=== PATIENT | female | born 1990 | race Hispanic/Latino ===

== ENCOUNTER 2018-05-12 20:50 | Inpatient (IN) | payer MEDICAID ==
[~2018-05-12] VITALS: Ht 154.9 cm; Wt 63.0 kg
[2018-05-12] MEDS ORDERED: LACTATED RINGERS 1000ML 1,000 ML IV PRN (20:59)
[2018-05-12] MEDS ORDERED: PROMETHAZINE HCL 25 MG/ML 1ML AMPULE IM SCH (21:30)
[2018-05-12] MEDS ORDERED: MEPERIDINE-PF 25 MG/ML SYG IVP ONE (21:30)
[2018-05-12] MEDS ORDERED: MEPERIDINE-PF 50 MG/ML SYG IVP ONE (21:30)
[2018-05-12] MEDS ORDERED: AMPICILLIN 2GM+NS 100ML 100 ML IV ONE (21:34)
[2018-05-12] MEDS ORDERED: LACTATED RINGERS 1000ML 1,000 ML IV ONE (21:35)
[2018-05-12] MEDS ORDERED: OXYTOCIN 10 USP UNITS/ML ONE (21:35)
[2018-05-12] MEDS ORDERED: MEPERIDINE-PF 25 MG/ML SYG ONE (21:43)
[2018-05-12] MEDS ORDERED: PROMETHAZINE HCL 25 MG/ML 1ML AMPULE IM ONE (21:43)
[2018-05-12] MEDS ORDERED: AMPICILLIN 1GM+NS 50ML 50 ML IV SCH (21:45)
[2018-05-12] MEDS ORDERED: AMPICILLIN 2GM+NS 100ML 100 ML IV SCH (21:45)
[2018-05-12] MEDS: OXYTOCIN-LR 20 UNITS/1000 ML 1,000 ML IV SCH (22:30)
[2018-05-12] MEDS ORDERED: BENZOCAINE/LANOLIN/ALOE VERA 60 ML AEROSOL TP PRN (23:45)
[2018-05-12] MEDS ORDERED: WITCH HAZEL 1 PAD TP PRN (23:45)
[2018-05-12] MEDS ORDERED: LANOLIN 30GM OINTMENT TP PRN (23:45)
[2018-05-12] MEDS ORDERED: ACETAMINOPHEN-CODEINE 300/30MG TAB PO PRN (23:45)
[2018-05-12] MEDS ORDERED: DIPH,PERTUSS(ACELL),TET VAC/PF 0.5 ML VIAL IM PRN (23:45)
[2018-05-12] MEDS ORDERED: OXYTOCIN-LR 20 UNITS/1000 ML 1,000 ML IV SCH (23:45)
[2018-05-12] MEDS ORDERED: ACETAMINOPHEN 325 MG TAB PO PRN (23:45)
[2018-05-13] VITALS (7 sets, daily range): BP systolic 101–121; BP diastolic 53–74
[2018-05-13] LABS: APPEARANCE,URINE Clear (CLEAR); BILIRUBIN,URINE Negative (NEGATIVE); COLOR,URINE Yellow (YELLOW); GLUCOSE, URINE (UA) Negative (NEGATIVE); KETONES,URINE >=80 mg/dL (NEGATIVE); LEUKOCYTE ESTERASE ,URINE Trace (NEGATIVE); NITRATE,URINE Negative (NEGATIVE); OCCULT BLOOD,URINE Negative (NEGATIVE); PH,URINE 6.5 (5.0-8.0); PROTEIN,URINE Negative (NEGATIVE)
[2018-05-13 00:10] LABS: BACTERIA,URINE Few /HPF (None Seen); MUCUS,URINE Moderate LPF (None Seen); RBC,URINE 0-1 /HPF (0-1); SQUAMOUS EPITHELIAL CELL,UR Moderate /HPF (0-2); YEAST,URINE BUDDING Moderate /HPF (None Seen)
[2018-05-13 00:13] LABS: AMPHET/METH SCREEN,URINE NEGATIVE (NEGATIVE); BARBITURATE SCREEN, URINE NEGATIVE (NEGATIVE); BENZODIAZEPINES SCREEN,URINE NEGATIVE (NEGATIVE); CANNABINOID SCREEN,URINE NEGATIVE (NEGATIVE); COCAINE SCREEN,URINE NEGATIVE (NEGATIVE); OPIATE SCREEN,URINE NEGATIVE (NEGATIVE); PHENCYCLIDINE SCREEN,URINE NEGATIVE (NEGATIVE)
[2018-05-13] MEDS ORDERED: OXYTOCIN 10 USP UNITS/ML ONE (00:44)
[2018-05-13] MEDS ORDERED: LACTATED RINGERS 1000ML 1,000 ML IV ONE (00:44)
[2018-05-13 05:55] LABS: HEMATOCRIT 29.1 % (36-48); MEAN CORPUSCULAR HEMOGLOBIN 25.8 pg (27.0-33.0); MEAN CORPUSCULAR HGB CONC 33.1 g/dL (32.0-36.0); MEAN CORPUSCULAR VOLUME 77.9 fL (79-99); PLATELET COUNT (AUTO) 160 K/uL (130-400); RED BLOOD CELL COUNT(AUTO) 3.73 MIL/uL (4.00-5.50); RED CELL DISTRIBUTION WIDTH 13.8 % (11.0-15.5); WHITE BLOOD COUNT (AUTO) 15.9 K/uL (4.8-10.8)
[2018-05-13 06:25] LABS: BASOPHILS % (AUTO) 0.2 % (0.0-5.0); EOSINOPHILS % (AUTO) 0.5 % (0.0-8.0); HEMATOCRIT 37.5 % (36-48); LYMPHOCYTES % (AUTO) 14.8 % (21.0-51.0); MEAN CORPUSCULAR HEMOGLOBIN 24.7 pg (27.0-33.0); MEAN CORPUSCULAR VOLUME 79.6 fL (79-99); MONOCYTES % (AUTO) 7.1 % (3.0-13.0); NEUTROPHILS % (AUTO) 77.4 % (40.0-77.0); PLATELET COUNT (AUTO) 192 K/uL (130-400); RED BLOOD CELL COUNT(AUTO) 4.71 MIL/uL (4.00-5.50); RED CELL DISTRIBUTION WIDTH 14.7 % (11.0-15.5); WHITE BLOOD COUNT (AUTO) 11.8 K/uL (4.8-10.8)
[2018-05-13 07:17] LABS: RAPID PLASMA REAGIN NONREACTIVE (NONREACTIVE)
[2018-05-13] MEDS: IBUPROFEN 600 MG TABLET PO PRN ×2 (10:36→20:23)
[2018-05-13] MEDS: DOCUSATE SODIUM 100 MG CAP PO SCH ×2 (10:36→20:22)
[2018-05-13] MEDS: OXYTOCIN-LR 20 UNITS/1000 ML 1,000 ML IV SCH (21:30)
[2018-05-14 03:39] VITALS: BP 105/60
[2018-05-14] MEDS: IBUPROFEN 600 MG TABLET PO PRN (05:47)
[2018-05-14 07:32] VITALS: BP 111/73
[2018-05-14 08:22] LABS: HEPATITIS Bs ANTIGEN SCREEN P Negative (Negative)
[2018-05-14] MEDS: DOCUSATE SODIUM 100 MG CAP PO SCH (08:23)
[2018-05-14 11:27] VITALS: BP 123/74
== END 2018-05-14 11:30 | disposition home or self-care (01) | DRG 560 ==
LOC: EDH 20:50 → OBSVTOIN 20:51 → LDH 20:51 → WSH 05-13 01:40
PROVIDERS: ADMIT Obstetrics & Gynecology; ATTEND Obstetrics & Gynecology
PROC: 10E0XZZ Delivery of Products of Conception, External Approach (ICD-10-PCS; principal; 2018-05-12)
PROC: 10907ZC Drainage of Amniotic Fluid, Therapeutic from Products of Conception, Via Natural or Artificial Opening (ICD-10-PCS; 2018-05-12)
PROC: 3E0234Z Introduction of Serum, Toxoid and Vaccine into Muscle, Percutaneous Approach (ICD-10-PCS; 2018-05-12)
DX: O77.0 Labor and delivery complicated by meconium in amniotic fluid (principal); O34.211 Maternal care for low transverse scar from previous cesarean delivery; Z3A.38 38 weeks gestation of pregnancy; Z37.0 Single live birth; Z23 Encounter for immunization
CPT/HCPCS: 36415; 80305; 81001; 85025; 85027; 86592; 86701; 86850; 86900; 86901; 87340; 87390; J0290; J2175; J2550; J2590; J7120

== ENCOUNTER 2018-07-12 10:00 | Emergency (ER) | payer MEDICAID | END 2018-07-12 11:58 | disposition home or self-care (01) | LOC: EDH 10:00 | DX: K13.0 Diseases of lips (principal) | CPT/HCPCS: 10060 ==

== ENCOUNTER 2018-10-28 17:27 | Emergency (ER) | payer MEDICAID, OTHER ==
[2018-10-28] MEDS ORDERED: CLINDAMYCIN HCL 150 MG CAP ONE (18:40)
== END 2018-10-28 19:08 | disposition home or self-care (01) ==
LOC: EDH 17:27
DX: L03.032 Cellulitis of left toe (principal)